=== PATIENT | female | born 1950 | race Caucasian/White ===

== ENCOUNTER 2017-12-11 11:04 | Inpatient (IN) | payer MEDICARE ==
[2017-12-11] MEDS ORDERED: ACETAMINOPHEN TAB 325 MG TAB PO STA (11:19)
--- NOTE | 2017-12-11 11:24 | ED ---
General Adult HPI - General Chief complaint: Shortness of Breath Stated complaint: FILI Time Seen by Provider: 12/11/17 11:10 Source: patient, EMS, RN notes reviewed Mode of arrival: EMS Limitations: no limitations - History of Present Illness Initial comments: Patient is a pleasant 67-year-old female presenting to the emergency Department with difficulty breathing. Patient is somewhat a poor historian. Patient does have occasional cough that is nonproductive. Patient has had subjective fevers. Patient feels short of breath and does have a history of COPD. Patient does have some chest tightness. No leg pain or leg swelling. Patient has been fatigued and sleeping more than normal. Patient states symptoms have significantly improved with nebulizer and steroids by EMS. - Related Data Allergies Allergy/AdvReac Type Severity Reaction Status Date / Time Penicillins Allergy Anaphylaxis Verified 12/11/17 11:16 Review of Systems ROS Statement: Those systems with pertinent positive or pertinent negative responses have been documented in the HPI. ROS Other: All systems not noted in ROS Statement are negative. Constitutional: Reports: fever, chills Eyes: Denies: eye pain ENT: Denies: ear pain Respiratory: Reports: cough, dyspnea Cardiovascular: Reports: chest pain Endocrine: Reports: fatigue Gastrointestinal: Denies: abdominal pain Genitourinary: Denies: dysuria Musculoskeletal: Denies: back pain Skin: Denies: rash Neurological: Denies: weakness Past Medical History Past Medical History: Heart Failure, COPD, Diabetes Mellitus History of Any Multi-Drug Resistant Organisms: None Reported Past Surgical History: Tubal Ligation Additional Past Surgical History / Comment(s): ganglian cyst removed from left wrist and foot Past Psychological History: No Psychological Hx Reported Smoking Status: Former smoker Past Alcohol Use History: None Reported Past Drug Use History: None Reported General Exam Limitations: no limitations General appearance: alert, in no apparent distress Head exam: Present: atraumatic Eye exam: Present: normal appearance Neck exam: Present: normal inspection Respiratory exam: Present: wheezes, rales (Left base), decreased breath sounds Cardiovascular Exam: Present: tachycardia Expanded Peripheral pulses: 2+: Radial (R), Radial (L), Dorsalis Pedis (R), Dorsalis Pedis (L) GI/Abdominal exam: Present: soft. Absent: tenderness Extremities exam: Present: normal inspection. Absent: pedal edema, calf tenderness Neurological exam: Present: alert Psychiatric exam: Present: normal affect, normal mood Skin exam: Present: normal color Course Vital Signs 12/11/17 12/11/17 11:07 12:08 Temperature 99.9 F H Pulse Rate 116 H 103 H Respiratory 28 H 24 Rate Blood Pressure 128/61 124/56 O2 Sat by Pulse 93 L 94 L Oximetry - Reevaluation(s) Reevaluation #1: 12/11/17 12:17 Patient does meet sepsis criteria diagnosed at 1217. Blood culture and lactic acid have been ordered. IV antibiotics will be ordered. EKG Findings - EKG Comments: EKG Findings:: Sinus tachycardia 111. IL 140. QRS 82. QT 326. QTc 443. Normal axis. Normal QRS. No acute ST change. Medical Decision Making - Medical Decision Making Patient reevaluated and updated. Case was also discussed in detail with Dr. Sanchez, who will admit for Dr. naylor, who admits for Dr. Watts. - Lab Data Result diagrams: 12/11/17 11:18 12/11/17 11:18 Lab Results 12/11/17 12/11/17 12/11/17 Range/Units 11:18 11:18 11:18 WBC 23.5 H (3.8-10.6) k/uL RBC 3.91 (3.80-5.40) m/uL Hgb 11.1 L (11.4-16.0) gm/dL Hct 34.1 (34.0-46.0) % MCV 87.1 (80.0-100.0) fL MCH 28.3 (25.0-35.0) pg MCHC 32.5 (31.0-37.0) g/dL RDW 13.5 (11.5-15.5) % Plt Count 309 (150-450) k/uL Neutrophils % 92 % Lymphocytes % 4 % Monocytes % 2 % Eosinophils % 0 % Basophils % 0 % Neutrophils # 21.7 H (1.3-7.7) k/uL Lymphocytes # 1.0 (1.0-4.8) k/uL Monocytes # 0.5 (0-1.0) k/uL Eosinophils # 0.1 (0-0.7) k/uL Basophils # 0.0 (0-0.2) k/uL PT (9.0-12.0) sec INR (<1.2) APTT (22.0-30.0) sec Sodium 138 (137-145) mmol/L Potassium 5.1 (3.5-5.1) mmol/L Chloride 102 (98-107) mmol/L Carbon Dioxide 19 L (22-30) mmol/L Anion Gap 17 mmol/L BUN 28 H (7-17) mg/dL Creatinine 0.90 (0.52-1.04) mg/dL Est GFR (CKD-EPI)AfAm 76 (>60 ml/min/1.73 sqM) Est GFR (CKD-EPI)NonAf 66 (>60 ml/min/1.73 sqM) Glucose 135 H (74-99) mg/dL Plasma Lactic Acid Javier 1.1 (0.7-2.0) mmol/L Calcium 8.9 (8.4-10.2) mg/dL Total Bilirubin 0.8 (0.2-1.3) mg/dL AST 29 (14-36) U/L ALT 34 (9-52) U/L Alkaline Phosphatase 163 H (38-126) U/L Total Creatine Kinase (30-135) U/L CK-MB (CK-2) (0.0-2.4) ng/mL CK-MB (CK-2) Rel Index Troponin I (0.000-0.034) ng/mL NT-Pro-B Natriuret Pep pg/mL Total Protein 6.1 L (6.3-8.2) g/dL Albumin 3.0 L (3.5-5.0) g/dL Influenza Type A RNA (Not Detectd) Influenza Type B (PCR) (Not Detectd) 12/11/17 12/11/17 12/11/17 Range/Units 11:18 11:18 11:18 WBC (3.8-10.6) k/uL RBC (3.80-5.40) m/uL Hgb (11.4-16.0) gm/dL Hct (34.0-46.0) % MCV (80.0-100.0) fL MCH (25.0-35.0) pg MCHC (31.0-37.0) g/dL RDW (11.5-15.5) % Plt Count (150-450) k/uL Neutrophils % % Lymphocytes % % Monocytes % % Eosinophils % % Basophils % % Neutrophils # (1.3-7.7) k/uL Lymphocytes # (1.0-4.8) k/uL Monocytes # (0-1.0) k/uL Eosinophils # (0-0.7) k/uL Basophils # (0-0.2) k/uL PT 10.2 (9.0-12.0) sec INR 1.0 (<1.2) APTT 20.5 L (22.0-30.0) sec Sodium (137-145) mmol/L Potassium (3.5-5.1) mmol/L Chloride (98-107) mmol/L Carbon Dioxide (22-30) mmol/L Anion Gap mmol/L BUN (7-17) mg/dL Creatinine (0.52-1.04) mg/dL Est GFR (CKD-EPI)AfAm (>60 ml/min/1.73 sqM) Est GFR (CKD-EPI)NonAf (>60 ml/min/1.73 sqM) Glucose (74-99) mg/dL Plasma Lactic Acid Javier (0.7-2.0) mmol/L Calcium (8.4-10.2) mg/dL Total Bilirubin (0.2-1.3) mg/dL AST (14-36) U/L ALT (9-52) U/L Alkaline Phosphatase (38-126) U/L Total Creatine Kinase 28 L (30-135) U/L CK-MB (CK-2) 0.4 (0.0-2.4) ng/mL CK-MB (CK-2) Rel Index 1.4 Troponin I <0.012 (0.000-0.034) ng/mL NT-Pro-B Natriuret Pep 747 pg/mL Total Protein (6.3-8.2) g/dL Albumin (3.5-5.0) g/dL Influenza Type A RNA (Not Detectd) Influenza Type B (PCR) (Not Detectd) 12/11/17 Range/Units 11:27 WBC (3.8-10.6) k/uL RBC (3.80-5.40) m/uL Hgb (11.4-16.0) gm/dL Hct (34.0-46.0) % MCV (80.0-100.0) fL MCH (25.0-35.0) pg MCHC (31.0-37.0) g/dL RDW (11.5-15.5) % Plt Count (150-450) k/uL Neutrophils % % Lymphocytes % % Monocytes % % Eosinophils % % Basophils % % Neutrophils # (1.3-7.7) k/uL Lymphocytes # (1.0-4.8) k/uL Monocytes # (0-1.0) k/uL Eosinophils # (0-0.7) k/uL Basophils # (0-0.2) k/uL PT (9.0-12.0) sec INR (<1.2) APTT (22.0-30.0) sec Sodium (137-145) mmol/L Potassium (3.5-5.1) mmol/L Chloride (98-107) mmol/L Carbon Dioxide (22-30) mmol/L Anion Gap mmol/L BUN (7-17) mg/dL Creatinine (0.52-1.04) mg/dL Est GFR (CKD-EPI)AfAm (>60 ml/min/1.73 sqM) Est GFR (CKD-EPI)NonAf (>60 ml/min/1.73 sqM) Glucose (74-99) mg/dL Plasma Lactic Acid Javier (0.7-2.0) mmol/L Calcium (8.4-10.2) mg/dL Total Bilirubin (0.2-1.3) mg/dL AST (14-36) U/L ALT (9-52) U/L Alkaline Phosphatase (38-126) U/L Total Creatine Kinase (30-135) U/L CK-MB (CK-2) (0.0-2.4) ng/mL CK-MB (CK-2) Rel Index Troponin I (0.000-0.034) ng/mL NT-Pro-B Natriuret Pep pg/mL Total Protein (6.3-8.2) g/dL Albumin (3.5-5.0) g/dL Influenza Type A RNA Not Detected (Not Detectd) Influenza Type B (PCR) Not Detected (Not Detectd) - Radiology Data Radiology results: image reviewed (Chest x-ray shows bilateral areas of consolidation consistent with pneumonia.) Critical Care Time Critical Care Time: Yes Total Critical Care Time: 32 Disposition Clinical Impression: Bilateral pneumonia, Sepsis Disposition: ADMITTED IP TO THIS HOSP Condition: Serious Referrals: Geremias Watts III, MD [Primary Care Provider] - 1-2 days Decision Time: 12:19
[2017-12-11 11:38] LABS: Basophils % (A) 0 %; Eosinophils # (A) 0.1 k/uL (0-0.7); Eosinophils % (A) 0 %; HCT 34.1 % (34.0-46.0); HGB 11.1 gm/dL (11.4-16.0); Lymphocytes % (A) 4 %; MCH 28.3 pg (25.0-35.0); MCHC 32.5 g/dL (31.0-37.0); MCV 87.1 fL (80.0-100.0); Monocytes # (A) 0.5 k/uL (0-1.0); Monocytes % (A) 2 %; Neutrophils # (A) 21.7 k/uL (1.3-7.7); Neutrophils % (A) 92 %; Platelet Count 309 k/uL (150-450); RBC 3.91 m/uL (3.80-5.40); RDW 13.5 % (11.5-15.5); WBC 23.5 k/uL (3.8-10.6)
[2017-12-11 11:49] LABS: Calcium 8.9 mg/dL (8.4-10.2); Total Bilirubin 0.8 mg/dL (0.2-1.3)
--- NOTE | 2017-12-11 11:50 | XR ---
EXAMINATION TYPE: XR chest 2V DATE OF EXAM: 12/11/2017 HISTORY: Fever. REFERENCE: NONE. FINDINGS: There is increased opacity at the left lung base. There is airspace disease in the right mi dlung. Heart size upper limits of normal. No pleural fluid is seen. IMPRESSION: BILATERAL AREAS OF CONSOLIDATION CONSISTENT WITH PNEUMONIA. FOLLOW-UP TO RESOLUTION WOULD BE BIBIANA Floyd
[2017-12-11 11:52] LABS: Creatine Kinase 28 U/L (30-135)
[2017-12-11 11:54] LABS: Potassium 5.1 mmol/L (3.5-5.1); Total Protein 6.1 g/dL (6.3-8.2)
[2017-12-11 12:03] LABS: Prothrombin Time 10.2 sec (9.0-12.0)
[2017-12-11 12:04] LABS: Partial Thromboplastin Time 20.5 sec (22.0-30.0)
[2017-12-11 12:05] LABS: Creatine Kinase MB 0.4 ng/mL (0.0-2.4); Troponin I <0.012 ng/mL (0.000-0.034)
[2017-12-11] MEDS ORDERED: PNEUMONIA PROTOCOL UTILIZED 1 EACH MISC PO PRN (12:19)
[2017-12-11] MEDS ORDERED: IPRATROPIUM-ALBUTEROL 3 ML NEB INHALATION PRN (12:19)
[2017-12-11] MEDS ORDERED: AZTREONAM 2 GM in SODIUM CHLORIDE 0.9% 100 ML IVPB STA (12:19)
[2017-12-11] MEDS ORDERED: LEVOFLOXACIN 750MG-D5W PMX 750 MG in DEXTROSE/WATER 1 150ML.BAG IVPB STA (12:19)
[2017-12-11] MEDS ORDERED: SODIUM CHLORIDE 0.9% 1,000 ML IV SCH (12:30)
[2017-12-11] MEDS ORDERED: diphenhydrAMINE 50 MG/ML 1 ML VIAL IVP STA (13:04)
[2017-12-11 14:03] VITALS: BMI 41.1
[2017-12-11] MEDS: IPRATROPIUM-ALBUTEROL 3 ML NEB INHALATION SCH ×2 (16:27→20:59)
[2017-12-11] MEDS ORDERED: ALBUTEROL INHALER 60 PUFF/8 GM INHALER INHALATION PRN (17:12)
[2017-12-11] MEDS ORDERED: FUROSEMIDE 10 MG/ML 4 ML VIAL IV STA (17:21)
[2017-12-11] MEDS ORDERED: predniSONE 20 MG TAB PO STA (17:22)
[2017-12-11 17:23] LABS: Glucose,Whole Blood 217 mg/dL (75-99)
--- NOTE | 2017-12-11 17:28 | P.HPIM ---
History of Present Illness 67-year-old pleasant female came in with complains of shortness of breath has been going on for last couple days and patient started having flulike symptoms about a week ago last Tuesday came home slapped for 10 hours woke up for couple hours and went back to sleep for 10 more hours patient has body aches. Patient denied any cough patient was having chills. Patient did smoke in the past patient does have history of COPD in the past. Patient had low-grade fever here and patient has highly elevated white blood cell count of 25,000 patient chest x-ray did show diffuse infiltrate bilaterally suspicious for pneumonia acute lung injury as a result of recent while or bacterial pneumonia. Patient the has fine crackles on exam. Patient was started on Azetreonam and and levofloxacin and subsequently admitted. Patient was complaining of orthopnea and no paroxysmal nocturnal dyspnea Review of Systems REVIEW OF SYSTEMS: CONSTITUTIONAL: No fever, no malaise, no fatigue. HEENT: No recent visual problems or hearing problems. Denied any sore throat. CARDIOVASCULAR: No chest pain, PND, no palpitations, no syncope. PULMONARY: As mentioned in HPI GASTROINTESTINAL: No diarrhea, no nausea, no vomiting, no abdominal pain. Normoactive bowel sounds. NEUROLOGICAL: No headaches, no weakness, no numbness. HEMATOLOGICAL: Denies any bleeding or petechiae. GENITOURINARY: Denies any burning micturition, frequency, or urgency. MUSCULOSKELETAL/RHEUMATOLOGICAL: Denies any joint pain, swelling, or any muscle pain. ENDOCRINE: Denies any polyuria or polydipsia. The rest of the 14-point review of systems is negative. Past Medical History Past Medical History: Heart Failure, COPD, Diabetes Mellitus History of Any Multi-Drug Resistant Organisms: None Reported Past Surgical History: Tubal Ligation Additional Past Surgical History / Comment(s): ganglian cyst removed from left wrist and foot Past Anesthesia/Blood Transfusion Reactions: No Reported Reaction Past Psychological History: No Psychological Hx Reported Smoking Status: Former smoker Past Alcohol Use History: None Reported Past Drug Use History: None Reported Medications and Allergies Home Medications Medication Instructions Recorded Confirmed Type Albuterol Inhaler [Ventolin Hfa 2 puff INHALATION RT-Q6H PRN 12/11/17 12/11/17 History Inhaler] Ascorbic Acid [Vitamin C] 500 mg PO DAILY 12/11/17 12/11/17 History Aspirin EC [Ecotrin Low Dose] 81 mg PO DAILY 12/11/17 12/11/17 History Cholecalciferol [Vitamin D3] 1,000 unit PO DAILY 12/11/17 12/11/17 History Garlic 1 tab PO DAILY 12/11/17 12/11/17 History [place]-3 Fatty Acids/Fish Oil [Fish 1 cap PO DAILY 12/11/17 12/11/17 History Oil 1,000 mg Softgel] Peg 400/Hypromellose/Glycerin 1 drop BOTH EYES BID 12/11/17 12/11/17 History [Visine Dry Eye Relief Drop] Spironolactone Unknown Dose 1 tab PO DAILY 12/11/17 12/11/17 History metFORMIN HCL [Glucophage] 500 mg PO BID 12/11/17 12/11/17 History Allergies Allergy/AdvReac Type Severity Reaction Status Date / Time Penicillins Allergy Anaphylaxis Verified 12/11/17 12:28 shellfish derived [Crab] Allergy Rash/Hives Verified 12/11/17 13:12 Physical Exam Vitals: Vital Signs Temp Pulse Pulse Resp BP BP Pulse Ox 12/11/17 16:49 106 H 12/11/17 16:27 104 H 12/11/17 15:57 20 12/11/17 15:00 98.4 F 101 H 18 113/73 94 L 12/11/17 13:22 98.6 F 100 20 129/59 94 L 12/11/17 12:32 98.7 F 101 H 22 121/58 94 L 12/11/17 12:08 103 H 24 124/56 94 L 12/11/17 11:07 99.9 F H 116 H 28 H 128/61 93 L Intake and Output 12/11/17 12/11/17 12/11/17 06:59 14:59 22:59 Intake Total 250 Balance 250 Intake: Intake, IV Titration 250 Amount Levofloxacin 750Mg-D5w 150 Pmx 750 mg In Dextrose/ Water 1 150ml.bag @ 100 mls/hr IVPB Q24H [facility] Rx#: [id number] Sodium Chloride 0.9% 1, 100 000 ml @ 100 mls/hr IV . Q10H GUILLAUME Rx#:[id number] Other: Weight 108.862 kg 108.862 kg PHYSICAL EXAMINATION: GENERAL: The patient is alert and oriented x3, not in any acute distress. Well developed, well nourished. HEENT: Pupils are round and equally reacting to light. EOMI. No scleral icterus. No conjunctival pallor. Normocephalic, atraumatic. No pharyngeal erythema. No thyromegaly. CARDIOVASCULAR: S1 and S2 present. No murmurs, rubs, or gallops. PULMONARY: Diffuse fine bilateral crackles on exam fairly good air entry into bilateral lung vincent no wheezing was appreciated ABDOMEN: Soft, nontender, nondistended, normoactive bowel sounds. No palpable organomegaly. MUSCULOSKELETAL: No joint swelling or deformity. EXTREMITIES: No cyanosis, clubbing, or pedal edema. NEUROLOGICAL: Gross neurological examination did not reveal any focal deficits. SKIN: No rashes. Results CBC & Chem 7: 12/11/17 11:18 12/11/17 11:18 Labs: Abnormal Lab Results - Last 24 Hours (Table) 12/11/17 12/11/17 12/11/17 Range/Units 11: 11:18 11:18 WBC 23.5 H (3.8-10.6) k/uL Hgb 11.1 L (11.4-16.0) gm/dL Neutrophils # 21.7 H (1.3-7.7) k/uL APTT 20.5 L (22.0-30.0) sec Carbon Dioxide 19 L (22-30) mmol/L BUN 28 H (7-17) mg/dL Glucose 135 H (74-99) mg/dL POC Glucose (mg/dL) (75-99) mg/dL Alkaline Phosphatase 163 H (38-126) U/L Total Creatine Kinase (30-135) U/L Total Protein 6.1 L (6.3-8.2) g/dL Albumin 3.0 L (3.5-5.0) g/dL 18 12/11/17 Range/Units 11:18 17:21 WBC (3.8-10.6) k/uL Hgb (11.4-16.0) gm/dL Neutrophils # (1.3-7.7) k/uL APTT (22.0-30.0) sec Carbon Dioxide (22-30) mmol/L BUN (7-17) mg/dL Glucose (74-99) mg/dL POC Glucose (mg/dL) 217 H (75-99) mg/dL Alkaline Phosphatase (38-126) U/L Total Creatine Kinase 28 L (30-135) U/L Total Protein (6.3-8.2) g/dL Albumin (3.5-5.0) g/dL Thrombosis Risk Factor Assmnt - Choose All That Apply Each Factor Represents 1 point: Abnormal pulmonary function (COPD), Obesity ( BMI >25) Other Risk Factors: Yes Each Risk Factor Represents 2 Points: Age 61-74 years Thrombosis Risk Factor Assessment Total Risk Factor Score: 4 Thrombosis Risk Factor Assessment Level: Moderate Risk Assessment and Plan Plan: -Shortness of breath: Probably secondary to extensive bilateral pneumonia are acute lung injury as a result of viral pneumonia she had patient will be continue on levofloxacin will be given a dose of steroid for possible acute lung injury and inflammation. Patient will go given a dose of the Lasix as well for noncardiac pulmonary edema as a result of acute lung injury. -Acute hypoxic respiratory failure due to above-mentioned reasons. -Type 2 diabetes mellitus: Her blood sugars are expected to go up because of systemic steroids as mentioned above. - COPD without any significant exacerbation
[2017-12-11] MEDS: INSULIN ASPART 100 UNIT/ML 1 ML 10 ML VIAL SQ SCH ×2 (17:49→22:09)
[2017-12-11 19:46] LABS: Appearance,Urine Clear (Clear); Bacteria,Urine Rare /hpf; Bilirubin,Urine Negative (Negative); Blood,Urine Negative (Negative); Color,Urine Yellow; Glucose,Urine (UA) Negative (Negative); Hyaline Casts,Urine 1 /lpf (0-2); Ketones,Urine Negative (Negative); Leukocyte Esterase,Urine Moderate (Negative); Mucus,Urine Rare /hpf; Nitrite,Urine Negative (Negative); Protein,Urine Negative (Negative); RBC,Urine 3 /hpf (0-5); Specific Gravity,Urine 1.008 (1.001-1.035); Squamous Epithelial Cell,Urine 1 /hpf (0-4); Urobilinogen,Urine <2.0 mg/dL (<2.0); WBC,Urine 4 /hpf (0-5)
[2017-12-11 19:58] LABS: Glucose,Whole Blood 267 mg/dL (75-99)
[2017-12-11] MEDS: ARTIFICIAL TEARS-HYPROMELLOSE DROPS 15 ML BTL BOTH EYES SCH (22:09)
[2017-12-12] MEDS ORDERED: AZTREONAM 2 GM in SODIUM CHLORIDE 0.9% 100 ML IVPB SCH ×2
[2017-12-12] MEDS: IPRATROPIUM-ALBUTEROL 3 ML NEB INHALATION SCH ×4 (07:25→20:09)
[2017-12-12 07:29] LABS: HCT 33.1 % (34.0-46.0); HGB 10.6 gm/dL (11.4-16.0); MCH 28.2 pg (25.0-35.0); MCHC 32.1 g/dL (31.0-37.0); MCV 87.7 fL (80.0-100.0); Mean Platelet Volume 7.9; Platelet Count 381 k/uL (150-450); RBC 3.77 m/uL (3.80-5.40); RDW 13.8 % (11.5-15.5)
[2017-12-12] MEDS: INSULIN ASPART 100 UNIT/ML 1 ML 10 ML VIAL SQ SCH ×4 (07:30→22:05)
[2017-12-12 07:35] LABS: Calcium 9.2 mg/dL (8.4-10.2); Potassium 4.5 mmol/L (3.5-5.1)
[2017-12-12 07:41] LABS: Glucose,Whole Blood 193 mg/dL (75-99)
[2017-12-12] MEDS: ARTIFICIAL TEARS-HYPROMELLOSE DROPS 15 ML BTL BOTH EYES SCH ×2 (08:25→22:05)
[2017-12-12] MEDS: ASPIRIN 81 MG PO SCH (08:25)
--- NOTE | 2017-12-12 08:50 | XR ---
EXAMINATION TYPE: XR chest 2V DATE OF EXAM: 12/12/2017 COMPARISON: 12/11/2017 TECHNIQUE: PA and lateral views submitted. HISTORY: Fever FINDINGS: Bilateral areas of infiltrate are seen with small right effusion. Interstitial prominence noted. Hear t size stable. No pneumothorax. Hypertrophic and degenerative change of the spine. IMPRESSION: 1. Stable diffuse infiltrates correlate for multifocal pneumonia. Otherwise consider pulmonary edema.
--- NOTE | 2017-12-12 11:13 | P.PN ---
Subjective Patient was admitted for acute respiratory failure hypoxic secondary to either acute lung injury from viral respiratory illness are diffuse bilateral pneumonia. Patient did improve with Lasix didn't urinate much and gave her 1 dose of steroid for possible acute lung injury and patient is presently feeling better crackles improved patient is saturating at 91% to do Suboxone now. Patient feels better patient will be continued on levofloxacin continue present therapy pulmonology will be consulted. Constitutional: Denied any fatigue denied any fever. Cardio vascular: denied any chest pain, palpitations Gastrointestinal denied any nausea vomiting Pulmonary: As mentioned in HPI Neurologic denied any new focal deficits Objective - Vital Signs Vital signs: Vital Signs Temp 97.3 F L 12/12/17 07:00 Pulse 101 H 12/12/17 11:07 Resp 16 12/12/17 07:00 BP 115/72 12/12/17 07:00 Pulse Ox 94 L 12/12/17 07:00 Intake & Output 12/11/17 12/12/17 12/12/17 18:59 06:59 18:59 Intake Total 250 990 480 Balance 250 990 480 Weight 108.862 kg Intake: Intake, IV Titration 250 Amount Levofloxacin 750Mg-D5w 150 Pmx 750 mg In Dextrose/ Water 1 150ml.bag @ 100 mls/hr IVPB Q24H [facility] Rx#: [id number] Sodium Chloride 0.9% 1, 100 000 ml @ 100 mls/hr IV . Q10H [facility]LL[facility] Rx#:[id number] Oral 990 480 Other: Voiding Method Toilet # Voids 2 - Exam PHYSICAL EXAMINATION: GENERAL: The patient is alert and oriented x3, not in any acute distress. Well developed, well nourished. HEENT: Pupils are round and equally reacting to light. EOMI. No scleral icterus. No conjunctival pallor. Normocephalic, atraumatic. No pharyngeal erythema. No thyromegaly. CARDIOVASCULAR: S1 and S2 present. No murmurs, rubs, or gallops. PULMONARY: Chest is clear to auscultation, no wheezing or crackles. Crackles completely resolved today ABDOMEN: Soft, nontender, nondistended, normoactive bowel sounds. No palpable organomegaly. MUSCULOSKELETAL: No joint swelling or deformity. EXTREMITIES: No cyanosis, clubbing, or pedal edema. NEUROLOGICAL: Gross neurological examination did not reveal any focal deficits. SKIN: No rashes. - Labs CBC & Chem 7: 12/12/17 06:55 12/12/17 06:55 Labs: Abnormal Lab Results - Last 24 Hours (Table) 12/11/17 12/11/17 12/11/17 Range/Units 11:18 11:18 11:18 WBC 23.5 H (3.8-10.6) k/uL RBC (3.80-5.40) m/uL Hgb 11.1 L (11.4-16.0) gm/dL Hct (34.0-46.0) % Neutrophils # 21.7 H (1.3-7.7) k/uL APTT 20.5 L (22.0-30.0) sec Sodium (137-145) mmol/L Chloride (98-107) mmol/L Carbon Dioxide 19 L (22-30) mmol/L BUN 28 H (7-17) mg/dL Glucose 135 H (74-99) mg/dL POC Glucose (mg/dL) (75-99) mg/dL Alkaline Phosphatase 163 H (38-126) U/L Total Creatine Kinase (30-135) U/L Total Protein 6.1 L (6.3-8.2) g/dL Albumin 3.0 L (3.5-5.0) g/dL Ur Leukocyte Esterase (Negative) Urine Bacteria (None) /hpf Urine Mucus (None) /hpf 12/11/17 12/11/17 12/11/17 Range/Units 11:18 17:21 19:25 WBC (3.8-10.6) k/uL RBC (3.80-5.40) m/uL Hgb (11.4-16.0) gm/dL Hct (34.0-46.0) % Neutrophils # (1.3-7.7) k/uL APTT (22.0-30.0) sec Sodium (137-145) mmol/L Chloride (98-107) mmol/L Carbon Dioxide (22-30) mmol/L BUN (7-17) mg/dL Glucose (74-99) mg/dL POC Glucose (mg/dL) 217 H (75-99) mg/dL Alkaline Phosphatase (38-126) U/L Total Creatine Kinase 28 L (30-135) U/L Total Protein (6.3-8.2) g/dL Albumin (3.5-5.0) g/dL Ur Leukocyte Esterase Moderate H (Negative) Urine Bacteria Rare H (None) /hpf Urine Mucus Rare H (None) /hpf 12/11/17 12/12/17 12/12/17 Range/Units 19:56 06:55 06:55 WBC 27.0 H* (3.8-10.6) k/uL RBC 3.77 L (3.80-5.40) m/uL Hgb 10.6 L (11.4-16.0) gm/dL Hct 33.1 L (34.0-46.0) % Neutrophils # (1.3-7.7) k/uL APTT (22.0-30.0) sec Sodium 135 L (137-145) mmol/L Chloride 97 L (98-107) mmol/L Carbon Dioxide (22-30) mmol/L BUN 39 H (7-17) mg/dL Glucose 188 H (74-99) mg/dL POC Glucose (mg/dL) 267 H (75-99) mg/dL Alkaline Phosphatase (38-126) U/L Total Creatine Kinase (30-135) U/L Total Protein (6.3-8.2) g/dL Albumin (3.5-5.0) g/dL Ur Leukocyte Esterase (Negative) Urine Bacteria (None) /hpf Urine Mucus (None) /hpf 12/12/17 Range/Units 07:21 WBC (3.8-10.6) k/uL RBC (3.80-5.40) m/uL Hgb (11.4-16.0) gm/dL Hct (34.0-46.0) % Neutrophils # (1.3-7.7) k/uL APTT (22.0-30.0) sec Sodium (137-145) mmol/L Chloride (98-107) mmol/L Carbon Dioxide (22-30) mmol/L BUN (7-17) mg/dL Glucose (74-99) mg/dL POC Glucose (mg/dL) 193 H (75-99) mg/dL Alkaline Phosphatase (38-126) U/L Total Creatine Kinase (30-135) U/L Total Protein (6.3-8.2) g/dL Albumin (3.5-5.0) g/dL Ur Leukocyte Esterase (Negative) Urine Bacteria (None) /hpf Urine Mucus (None) /hpf Microbiology - Last 24 Hours (Table) 12/11/17 19:25 Urine Culture - Preliminary Urine,Clean Catch Assessment and Plan Plan: -Shortness of breath: Probably secondary to extensive bilateral pneumonia are acute lung injury as a result of viral pneumonia she had patient will be continue on levofloxacin will be given a dose of steroid for possible acute lung injury and inflammation. Patient will go given a dose of the Lasix as well for noncardiac pulmonary edema as a result of acute lung injury. -Acute hypoxic respiratory failure due to above-mentioned reasons. -Type 2 diabetes mellitus: Her blood sugars are expected to go up because of systemic steroids as mentioned above. - COPD without any significant exacerbation
[2017-12-12 11:46] LABS: Glucose,Whole Blood 222 mg/dL (75-99)
[2017-12-12] MEDS ORDERED: LEVOFLOXACIN 750MG-D5W PMX 750 MG in DEXTROSE/WATER 1 150ML.BAG IVPB SCH (12:00)
[2017-12-12] MEDS: LEVOFLOXACIN 750 MG TAB PO SCH (12:37)
--- NOTE | 2017-12-12 13:38 | P.CNPUL ---
History of Present Illness Consult date: 12/12/17 Reason for consult: dyspnea, cough, COPD, hypoxemia, pneumonia, abnormal CXR/CT Chief complaint: Shortness of breath, cough, fever History of present illness: Consult dated 12/22/2017 This is a very pleasant 67-year-old female who we were asked to see by Dr. Sanchez. The patient apparently came into the emergency room complaining of pneumonia like symptoms. The patient complained of shortness of breath chest congestion coughing which is productive of scant amount of sputum. There is also some temperature elevations a clammy sensation and chills. The patient had lots of chest congestion and tightness. Found it very difficult to breathe. He is walking just a few steps very difficult for her. In addition to all this, she was done be very weak and fatigued. Chest x-ray showed diffuse bilateral infiltrates mostly consistent with pneumonia. Today, we will see her, she is feeling a bit better. Not anywhere close to baseline. Maybe only about 25% better when she came in yesterday. States that she still feels very weak and short of breath. Lots of chest congestion. Just doesn't feel herself. Her only ALLERGY is penicillin. She has a history of underlying COPD diabetes heart failure and a previous tubal ligation. She was a heavy smoker in the past. Review of Systems A 12 point review of system is positive for shortness breath chest tightness wheezing cough chest congestion phlegm production and weakness. She also likely had subjective fever and chills at home. Past Medical History Past Medical History: Heart Failure, COPD, Diabetes Mellitus History of Any Multi-Drug Resistant Organisms: None Reported Past Surgical History: Tubal Ligation Additional Past Surgical History / Comment(s): ganglian cyst removed from left wrist and foot Past Anesthesia/Blood Transfusion Reactions: No Reported Reaction Past Psychological History: No Psychological Hx Reported Smoking Status: Former smoker Past Alcohol Use History: None Reported Past Drug Use History: None Reported Medications and Allergies Home Medications Medication Instructions Recorded Confirmed Type Albuterol Inhaler [Ventolin Hfa 2 puff INHALATION RT-Q6H PRN 12/11/17 12/11/17 History Inhaler] Ascorbic Acid [Vitamin C] 500 mg PO DAILY 12/11/17 12/11/17 History Aspirin EC [Ecotrin Low Dose] 81 mg PO DAILY 12/11/17 12/11/17 History Cholecalciferol [Vitamin D3] 1,000 unit PO DAILY 12/11/17 12/11/17 History Garlic 1 tab PO DAILY 12/11/17 12/11/17 History Burtrum-3 Fatty Acids/Fish Oil [Fish 1 cap PO DAILY 12/11/17 12/11/17 History Oil 1,000 mg Softgel] Peg 400/Hypromellose/Glycerin 1 drop BOTH EYES BID 12/11/17 12/11/17 History [Visine Dry Eye Relief Drop] metFORMIN HCL [Glucophage] 500 mg PO BID 12/11/17 12/11/17 History Spironolactone 50 mg PO DAILY 12/12/17 12/12/17 History Allergies Allergy/AdvReac Type Severity Reaction Status Date / Time Penicillins Allergy Anaphylaxis Verified 12/11/17 12:28 shellfish derived [Crab] Allergy Rash/Hives Verified 12/11/17 13:12 Physical Exam Osteopathic Statement: *. No significant issues noted on an osteopathic structural exam other than those noted in the History and Physical/Consult. Vitals: Vital Signs Temp Pulse Pulse Resp BP Pulse Ox 12/12/17 12:19 94 L 12/12/17 11:18 100 12/12/17 11:07 101 H 12/12/17 08:00 84 16 12/12/17 07:30 100 12/12/17 07:20 98 12/12/17 07:00 97.3 F L 84 16 115/72 94 L 12/11/17 21:46 97.8 F 12/11/17 21:18 102 H 12/11/17 21:00 88 16 114/73 98 12/11/17 20:59 98 12/11/17 16:49 106 H 12/11/17 16:27 104 H 12/11/17 15:57 20 12/11/17 15:00 98.4 F 101 H 18 113/73 94 L Intake and Output 12/11/17 12/12/17 12/12/17 22:59 06:59 14:59 Intake Total 554 251 5366 Balance 943 578 8586 Intake: Oral 982 769 2216 Other: Voiding Method Toilet Toilet # Voids 2 2 3 Weight 108.862 kg No acute distress, oriented 3. Nasal O2 in place. She does seem to be short of breath even at rest. HEENT examination is grossly unremarkable. Mucous membranes are moist. No oral lesions. Neck supple. Full range of motion. No adenopathy thyromegaly or neck vein distention. Cardiovascular examination reveals regular rhythm rate. S1-S2 normal. No S3 or S4. No discernible murmur noted. Lungs reveal diminished bilateral breath sounds. There are diffuse bilateral rhonchi and a few scattered wheezes. Breath sounds are diminished. There is prolongation on forced maneuver. She has a very wet congested sounding cough. Abdomen soft bowel sounds are heard. No masses or tenderness. Extremities are intact. No cyanosis clubbing or edema. Skin is without rash or lesion. Neurologic examination is brief but nonfocal. Results - Laboratory Findings CBC and BMP: 12/12/17 06:55 12/12/17 06:55 PT/INR, D-dimer PT 10.2 sec (9.0-12.0) 12/11/17 11:18 INR 1.0 (<1.2) 12/11/17 11:18 Abnormal lab findings: Abnormal Labs 12/11/17 12/11/17 12/11/17 11:18 11:18 11:18 WBC 23.5 H RBC Hgb 11.1 L Hct Neutrophils # 21.7 H APTT 20.5 L Sodium Chloride Carbon Dioxide 19 L BUN 28 H Glucose 135 H POC Glucose (mg/dL) Alkaline Phosphatase 163 H Total Creatine Kinase Total Protein 6.1 L Albumin 3.0 L Ur Leukocyte Esterase Urine Bacteria Urine Mucus 12/11/17 12/11/17 12/11/17 11:18 17:21 19:25 WBC RBC Hgb Hct Neutrophils # APTT Sodium Chloride Carbon Dioxide BUN Glucose POC Glucose (mg/dL) 217 H Alkaline Phosphatase Total Creatine Kinase 28 L Total Protein Albumin Ur Leukocyte Esterase Moderate H Urine Bacteria Rare H Urine Mucus Rare H 12/11/17 12/12/17 12/12/17 19:56 06:55 06:55 WBC 27.0 H* RBC 3.77 L Hgb 10.6 L Hct 33.1 L Neutrophils # APTT Sodium 135 L Chloride 97 L Carbon Dioxide BUN 39 H Glucose 188 H POC Glucose (mg/dL) 267 H Alkaline Phosphatase Total Creatine Kinase Total Protein Albumin Ur Leukocyte Esterase Urine Bacteria Urine Mucus 12/12/17 12/12/17 07:21 11:35 WBC RBC Hgb Hct Neutrophils # APTT Sodium Chloride Carbon Dioxide BUN Glucose POC Glucose (mg/dL) 193 H 222 H Alkaline Phosphatase Total Creatine Kinase Total Protein Albumin Ur Leukocyte Esterase Urine Bacteria Urine Mucus - Diagnostic Findings Chest x-ray: image reviewed (Chest x-ray labs and medications all reviewed. Chest x-ray does show evidence of multifocal pneumonia.) Assessment and Plan Assessment: Assessment Hypoxemic respiratory failure, likely secondary to multifocal community- acquired pneumonia History of COPD with a COPD exacerbation History of heavy tobacco use History of diabetes mellitus History of heart failure History of tubal ligation Plan: Plan dated 12/22/2014 Medications labs and x-rays all reviewed. We'll make sure that she is on appropriate medications. No additional recommendations are made. We'll continue to follow closely. Prognosis is guarded. We'll continue to follow closely. Time with Patient: Greater than 30
[2017-12-12 17:40] LABS: Glucose,Whole Blood 196 mg/dL (75-99)
[2017-12-12 20:07] LABS: Glucose,Whole Blood 203 mg/dL (75-99)
[2017-12-13 07:44] LABS: Glucose,Whole Blood 131 mg/dL (75-99)
[2017-12-13] MEDS: IPRATROPIUM-ALBUTEROL 3 ML NEB INHALATION SCH ×4 (08:22→19:35)
[2017-12-13] MEDS: INSULIN ASPART 100 UNIT/ML 1 ML 10 ML VIAL SQ SCH ×4 (08:58→21:45)
[2017-12-13] MEDS: ASPIRIN 81 MG PO SCH (08:59)
[2017-12-13] MEDS: LEVOFLOXACIN 750 MG TAB PO SCH (08:59)
[2017-12-13] MEDS: ARTIFICIAL TEARS-HYPROMELLOSE DROPS 15 ML BTL BOTH EYES SCH ×2 (08:59→21:44)
[2017-12-13] MEDS ORDERED: PROMETHAZ-COD 6.25-10 MG/5 ML 5 ML CUP PO PRN (11:27)
[2017-12-13 11:30] LABS: Glucose,Whole Blood 96 mg/dL (75-99)
--- NOTE | 2017-12-13 12:34 | P.PN ---
Subjective Progress Note Date: 12/13/17 Principal diagnosis: Hypoxemic respiratory failure, secondary to multifocal community-acquired pneumonia This is a very pleasant 67-year-old female who we were asked to see by Dr. Sanchez. The patient apparently came into the emergency room complaining of pneumonia like symptoms. The patient complained of shortness of breath chest congestion coughing which is productive of scant amount of sputum. There is also some temperature elevations a clammy sensation and chills. The patient had lots of chest congestion and tightness. Found it very difficult to breathe. He is walking just a few steps very difficult for her. In addition to all this, she was done be very weak and fatigued. Chest x-ray showed diffuse bilateral infiltrates mostly consistent with pneumonia. Today, we will see her, she is feeling a bit better. Not anywhere close to baseline. Maybe only about 25% better when she came in yesterday. States that she still feels very weak and short of breath. Lots of chest congestion. Just doesn't feel herself. Her only ALLERGY is penicillin. She has a history of underlying COPD diabetes heart failure and a previous tubal ligation. She was a heavy smoker in the past. On 12/13/2017 patient seen in follow-up. She states she didn't sleep all night due to severe coughing spells. She feels very tired, and for now. However denies worsening dyspnea, does have left posterior chest wall tenderness. No fever, no chills no night sweats. Currently on 2 L per nasal cannula with O2 sat at 93%. Vital signs are stable, afebrile. Urine and blood cultures are negative thus far. Patient is on empiric antibiotics in the form of Levaquin, nebulized treatments. We will add some promethazine with codeine and Tessalon Perles today. We will add Symbicort. Objective - Vital Signs Vital signs: Vital Signs Temp 98.1 F 12/13/17 07:00 Pulse 80 12/13/17 08:00 Resp 18 12/13/17 08:00 BP 145/74 12/13/17 07:00 Pulse Ox 93 L 12/13/17 07:00 Intake & Output 12/12/17 12/13/17 12/13/17 18:59 06:59 18:59 Intake Total 2039 Balance 2039 Intake: Oral 2039 Other: Voiding Method Toilet Toilet Toilet # Voids 3 1 1 - Exam No acute distress, oriented 3. Nasal O2 in place. She does seem to be short of breath even at rest. HEENT examination is grossly unremarkable. Mucous membranes are moist. No oral lesions. Neck supple. Full range of motion. No adenopathy thyromegaly or neck vein distention. Cardiovascular examination reveals regular rhythm rate. S1-S2 normal. No S3 or S4. No discernible murmur noted. Lungs reveal diminished bilateral breath sounds. There are diffuse bilateral rhonchi and a few scattered wheezes. Breath sounds are diminished. There is prolongation on forced maneuver. She has a very wet congested sounding cough. Abdomen soft bowel sounds are heard. No masses or tenderness. Extremities are intact. No cyanosis clubbing or edema. Skin is without rash or lesion. Neurologic examination is brief but nonfocal. - Labs CBC & Chem 7: 12/12/17 06:55 12/12/17 06:55 Labs: Abnormal Lab Results - Last 24 Hours (Table) 12/12/17 12/12/17 12/13/17 Range/Units 17:17 20:05 07:32 POC Glucose (mg/dL) 196 H 203 H 131 H (75-99) mg/dL Microbiology - Last 24 Hours (Table) 12/11/17 19:25 Urine Culture - Final Urine,Clean Catch 12/11/17 11:18 Blood Culture - Preliminary Blood No Growth after 24 hours Assessment and Plan Plan: Assessment: Hypoxemic respiratory failure, likely secondary to multifocal community- acquired pneumonia History of COPD with a COPD exacerbation History of heavy tobacco use History of diabetes mellitus History of heart failure History of tubal ligation Plan: We will add Promethazine w/ Codeine, we will add Tessalon Perles for patient's cough. We will add prednisone 30 mg daily, Symbicort. Tinea with nebulized treatments, continue with empiric antibiotic coverage in the form of Levaquin. I performed a history & physical examination of the patient and discussed their management with my nurse practitioner, Meghan Mosqueda. I reviewed the nurse practitioner's note and agree with the documented findings and plan of care. Lung sounds are positive for rhonchi, a few wheezes. The findings and the impression was discussed with the patient. I attest to the documentation by the nurse practitioner. Time with Patient: Less than 30
[2017-12-13] MEDS: BENZONATATE 100 MG CAP PO SCH ×3 (14:16→22:27)
[2017-12-13] MEDS: predniSONE 10 MG TAB PO SCH (14:16)
[2017-12-13 17:31] LABS: Glucose,Whole Blood 161 mg/dL (75-99)
--- NOTE | 2017-12-13 19:15 | P.PN ---
Subjective Progress Note Date: 12/13/17 Progress note being dictated for Dr. Sanchez. Interval history: Patient was admitted for acute respiratory failure hypoxic secondary to either acute lung injury from viral respiratory illness are diffuse bilateral pneumonia. Patient did improve with Lasix didn't urinate much and gave her 1 dose of steroid for possible acute lung injury and patient is presently feeling better crackles improved patient is saturating at 91% to do Suboxone now. Patient feels better patient will be continued on levofloxacin continue present therapy pulmonology will be consulted. Constitutional: Denied any fatigue denied any fever. Cardio vascular: denied any chest pain, palpitations Gastrointestinal denied any nausea vomiting Pulmonary: As mentioned in HPI Neurologic denied any new focal deficits 12/13/2017 maintained on nebulized bronchodilators, Levaquin .feels worse today , states has not slept in 48 hours due to persistent cough. Nonproductive cough. Maintaining O2 sats in the low 90s on 2 L nasal cannula. Afebrile. Urine and blood cultures currently negative. Objective - Vital Signs Vital signs: Vital Signs Temp 98.1 F 12/13/17 07:00 Pulse 94 12/13/17 16:00 Resp 18 12/13/17 16:00 BP 128/75 12/13/17 15:00 Pulse Ox 96 12/13/17 15:26 Intake & Output 12/13/17 12/13/17 12/14/17 06:59 18:59 06:59 Intake Total 1200 Balance 1200 Weight 106.5 kg Intake: Oral 1200 Other: Voiding Method Toilet Toilet # Voids 1 1 - Exam GENERAL: The patient is alert and oriented x3, not in any acute distress. Well developed, well nourished. HEENT: Pupils are round and equally reacting to light. EOMI. No scleral icterus. No conjunctival pallor. Normocephalic, atraumatic. No pharyngeal erythema. No thyromegaly. CARDIOVASCULAR: S1 and S2 present. No murmurs, rubs, or gallops. PULMONARY: Diminished, diffuse scattered rhonchi with occasional inspiratory and expiratory wheezing, no crackles. ABDOMEN: Soft, nontender, nondistended, normoactive bowel sounds. No palpable organomegaly. MUSCULOSKELETAL: No joint swelling or deformity. EXTREMITIES: No cyanosis, clubbing, or pedal edema. NEUROLOGICAL: Gross neurological examination did not reveal any focal deficits. SKIN: No rashes. - Labs CBC & Chem 7: 12/12/17 06:55 12/12/17 06:55 Labs: Abnormal Lab Results - Last 24 Hours (Table) 12/12/17 12/13/17 12/13/17 Range/Units 20:05 07:32 17:20 POC Glucose (mg/dL) 203 H 131 H 161 H (75-99) mg/dL Microbiology - Last 24 Hours (Table) 12/11/17 11:18 Blood Culture - Preliminary Blood No Growth after 48 hours 12/11/17 19:25 Urine Culture - Final Urine,Clean Catch Assessment and Plan Assessment: -Shortness of breath: Probably secondary to extensive bilateral pneumonia are acute lung injury as a result of viral pneumonia she had patient will be continue on levofloxacin will be given a dose of steroid for possible acute lung injury and inflammation. Patient will go given a dose of the Lasix as well for noncardiac pulmonary edema as a result of acute lung injury. -Acute hypoxic respiratory failure due to above-mentioned reasons. -Type 2 diabetes mellitus: Her blood sugars are expected to go up because of systemic steroids as mentioned above. - COPD without any significant exacerbation Plan: Continue on current medication regime ,monitoring and symptomatic treatment. Tessalon pearls, cough syrup, Symbicort and prednisone added to med regime. Follow closely with pulmonary. Possible discharge home tomorrow pending clinical improvement. The impression and plan of care has been dictated as directed. : I performed a history and examination of this patient, discussed the same with the dictator. I agree with the dictator's note ,documented as a scribe. Any additional findings or plans will be noted.
[2017-12-13] MEDS: SYMBICORT 160-4.5 MCG INHALER INHALATION SCH ×2 (19:35)
[2017-12-13 20:37] LABS: Glucose,Whole Blood 222 mg/dL (75-99)
[2017-12-13] MEDS ORDERED: ZOLPIDEM 5 MG TAB PO PRN (21:00)
[2017-12-13 22:53] VITALS: RESP 16
[2017-12-14 07:10] LABS: Glucose,Whole Blood 139 mg/dL (75-99)
[2017-12-14] MEDS: SYMBICORT 160-4.5 MCG INHALER INHALATION SCH ×2 (07:18→19:33)
[2017-12-14] MEDS: IPRATROPIUM-ALBUTEROL 3 ML NEB INHALATION SCH ×4 (07:18→19:33)
[2017-12-14] MEDS: ARTIFICIAL TEARS-HYPROMELLOSE DROPS 15 ML BTL BOTH EYES SCH (07:37)
[2017-12-14] MEDS: BENZONATATE 100 MG CAP PO SCH ×2 (07:37→18:08)
[2017-12-14] MEDS: predniSONE 10 MG TAB PO SCH (07:37)
[2017-12-14] MEDS: ASPIRIN 81 MG PO SCH (07:37)
[2017-12-14] MEDS: INSULIN ASPART 100 UNIT/ML 1 ML 10 ML VIAL SQ SCH ×3 (07:38→18:09)
[2017-12-14] MEDS: LEVOFLOXACIN 750 MG TAB PO SCH (07:38)
[2017-12-14 08:32] LABS: MCH 27.9 pg (25.0-35.0); MCHC 31.5 g/dL (31.0-37.0); MCV 88.7 fL (80.0-100.0); Platelet Count 427 k/uL (150-450); RBC 3.95 m/uL (3.80-5.40); RDW 13.7 % (11.5-15.5); WBC 15.4 k/uL (3.8-10.6)
[2017-12-14 08:48] LABS: Calcium 9.1 mg/dL (8.4-10.2); Potassium 5.1 mmol/L (3.5-5.1)
[2017-12-14 12:14] LABS: Glucose,Whole Blood 188 mg/dL (75-99)
--- NOTE | 2017-12-14 14:50 | P.PN ---
Subjective Progress Note Date: 12/14/17 Principal diagnosis: Hypoxemic respiratory failure, secondary to multifocal community-acquired pneumonia This is a very pleasant 67-year-old female who we were asked to see by Dr. Sanchez. The patient apparently came into the emergency room complaining of pneumonia like symptoms. The patient complained of shortness of breath chest congestion coughing which is productive of scant amount of sputum. There is also some temperature elevations a clammy sensation and chills. The patient had lots of chest congestion and tightness. Found it very difficult to breathe. He is walking just a few steps very difficult for her. In addition to all this, she was done be very weak and fatigued. Chest x-ray showed diffuse bilateral infiltrates mostly consistent with pneumonia. Today, we will see her, she is feeling a bit better. Not anywhere close to baseline. Maybe only about 25% better when she came in yesterday. States that she still feels very weak and short of breath. Lots of chest congestion. Just doesn't feel herself. Her only ALLERGY is penicillin. She has a history of underlying COPD diabetes heart failure and a previous tubal ligation. She was a heavy smoker in the past. On 12/13/2017 patient seen in follow-up. She states she didn't sleep all night due to severe coughing spells. She feels very tired, and for now. However denies worsening dyspnea, does have left posterior chest wall tenderness. No fever, no chills no night sweats. Currently on 2 L per nasal cannula with O2 sat at 93%. Vital signs are stable, afebrile. Urine and blood cultures are negative thus far. Patient is on empiric antibiotics in the form of Levaquin, nebulized treatments. We will add some promethazine with codeine and Tessalon Perles today. We will add Symbicort. On 12/14/2017 patient seen in follow-up. She is sitting up on the edge of the bed, she states her breathing is much improved today, less coughing, less congestion, less dyspnea. Her left-sided posterior chest wall pain has completely resolved. He was able to sleep last night, and feels more energized today. She did walk in the room and tolerated activity well. She remains afebrile, vital signs are stable, she is on room air, with O2 sat at 95%. Lung sounds are positive for left lower lobe crackles, good air entry noted bilaterally, no rhonchi or wheezing noted. Urine and blood culture remained negative. Patient has been treated with Levaquin for her acute multilobar community-acquired pneumonia. Yesterday we added oral steroids, in addition to Symbicort, and cough syrup. Today's labs show WBC down to 15.4, hemoglobin is 11.0, electrolytes are within normal limits, BUN is 44, creatinine was 1.0. Patient could be considered for discharge home today Objective - Vital Signs Vital signs: Vital Signs Temp 97.0 F L 12/14/17 07:00 Pulse 80 12/14/17 11:17 Resp 16 12/14/17 08:00 BP 134/77 12/14/17 07:00 Pulse Ox 96 12/14/17 11:06 Intake & Output 12/13/17 12/14/17 12/14/17 18:59 06:59 18:59 Intake Total 1200 360 Balance 1200 360 Weight 104.5 kg Intake: Oral 1200 360 Other: Voiding Method Toilet Toilet Toilet # Voids 1 3 3 # Bowel Movements 1 - Exam No acute distress, oriented 3. On room air, no evidence of respiratory distress. HEENT examination is grossly unremarkable. Mucous membranes are moist. No oral lesions. Neck supple. Full range of motion. No adenopathy thyromegaly or neck vein distention. Cardiovascular examination reveals regular rhythm rate. S1-S2 normal. No S3 or S4. No discernible murmur noted. Lungs reveal diminished bilateral breath sounds. Breath sounds are diminished. There is some coarse crackles over left lower posterior base . There is prolongation on forced maneuver. She has a very wet congested sounding cough. Abdomen soft bowel sounds are heard. No masses or tenderness. Extremities are intact. No cyanosis clubbing or edema. Skin is without rash or lesion. Neurologic examination is brief but nonfocal. - Labs CBC & Chem 7: 12/14/17 07:48 12/14/17 07:48 Labs: Abnormal Lab Results - Last 24 Hours (Table) 12/13/17 12/13/17 12/14/17 Range/Units 17:20 20:28 07:09 WBC (3.8-10.6) k/uL Hgb (11.4-16.0) gm/dL BUN (7-17) mg/dL Glucose (74-99) mg/dL POC Glucose (mg/dL) 161 H 222 H 139 H (75-99) mg/dL 12/14/17 12/14/17 12/14/17 Range/Units 07:48 07:48 12:12 WBC 15.4 H (3.8-10.6) k/uL Hgb 11.0 L (11.4-16.0) gm/dL BUN 44 H (7-17) mg/dL Glucose 122 H (74-99) mg/dL POC Glucose (mg/dL) 188 H (75-99) mg/dL Microbiology - Last 24 Hours (Table) 12/11/17 11:18 Blood Culture - Preliminary Blood No Growth after 72 hours Assessment and Plan Plan: Assessment: Hypoxemic respiratory failure, likely secondary to multifocal community- acquired pneumonia. Patient responded well to treatment with empiric antibiotics in the form of Levaquin, microbiology remains negative to date. White count is trending down, patient remains afebrile, hypoxemia has resolved, patient is currently on room air History of COPD with a COPD exacerbation History of heavy tobacco use History of diabetes mellitus History of heart failure History of tubal ligation Plan: Patient has responded well to medical treatment, empiric antibiotics in the form of Levaquin, nebulized treatments, oral steroids, and Symbicort. Currently on room air, vital signs are stable, patient has been up ambulating, tolerating activity well. Denies any fever or chills, denies any chest wall pain, denies any worsening dyspnea. From pulmonary standpoint patient is stable for discharge home today. She will be seen by Dr. Manning in follow-up in the office, she will need to finish her outpatient course of oral Levaquin 750 mg for 8 more days, DuoNeb nebulized treatments 4 times a day and when necessary , Symbicort, and prednisone taper. I performed a history & physical examination of the patient and discussed their management with my nurse practitioner, Meghan Mosqueda. I reviewed the nurse practitioner's note and agree with the documented findings and plan of care. Lung sounds are positive coarse rales over left posterior lower lobe. The findings and the impression was discussed with the patient. I attest to the documentation by the nurse practitioner. Time with Patient: Less than 30
[2017-12-14 15:33] VITALS: BP 139/84; TEMP 97.9
[2017-12-14 15:42] VITALS: PULSE 77
[2017-12-14 17:09] LABS: Glucose,Whole Blood 162 mg/dL (75-99)
--- NOTE | 2017-12-30 16:00 | CDI ---
Last Revision, August 2017 Documentation Clarification Form Date: 12/30/2017 12:00:00 AM From: PATRIZIA Buchanan; Rosa [facility] Community Services Coordinator Phone: If you have a question about this query, please contact Rosa Isela [facility] Community Services Coordinator at [phone] between 8am and 5pm. Admit Date: 12/11/2017 12:19:00 PM Patient Name: Laila Beth Visit Number: [id number] Discharge Date: 12/14/2017 ATTENTION: The Clinical Documentation Specialists (CDI) and [facility] Coding Staff appreciate your assistance in clarifying documentation. Please respond to the clarification below the line at the bottom and electronically sign. The CDI & [facility] Coding staff will review the response and follow-up if needed. Please note: Queries are made part of the Legal Health Record. If you have any questions, please contact the author of this message via ITS. Dr. Leila Sanchez The patient presented with pneumonia and respiratory failure. She was started on steroids, and there is documentation that blood sugars are expected to go up. Ms. Beth is a type 2 diabetic on Glucophage. After admission, her labs showed glucose of 188 on 12/11 and 122 on 12/14. In your professional opinion, can you please clarify? DM with hyperglycemia DM with hyperglycemia due to steroids Other, please specify Unable to determine DM with hyperglycemia due to steroids MTDD
== END 2017-12-14 19:00 | disposition home or self-care (01) | DRG 193 ==
LOC: EC 11:04 → 5MS5E 12:19
PROVIDERS: ADMIT Internal Medicine; ATTEND Internal Medicine
DX: J18.9 Pneumonia, unspecified organism (principal); J96.01 Acute respiratory failure with hypoxia; E11.65 Type 2 diabetes mellitus with hyperglycemia; J44.0 Chronic obstructive pulmonary disease with (acute) lower respiratory infection; T38.0X5A Adverse effect of glucocorticoids and synthetic analogues, initial encounter; I50.9 Heart failure, unspecified; Z79.84 Long term (current) use of oral hypoglycemic drugs; Z87.891 Personal history of nicotine dependence; Z88.0 Allergy status to penicillin; Z98.51 Tubal ligation status; Z79.82 Long term (current) use of aspirin; Z91.013 Allergy to seafood
CPT/HCPCS: 36415; 71046; 80048; 80053; 81001; 82550; 82553; 83605; 83880; 84484; 85025; 85027; 85610; 85730; 87040; 87086; 87502; 93005; 94640; 94760; 96365; 96375; 99291